=== PATIENT | female | born 1990 | race Caucasian/White ===

== ENCOUNTER 2018-04-04 17:35 | Inpatient (IN) | payer OTHER ==
--- NOTE | 2018-04-04 17:48 | ED Physician Documentation ---
Seizure - HISTORIAN Historian: patient - HPI Stated Complaint: seizures - post alcohol withdrawl Chief Complaint: Seizure Timing/Onset/Duration: multiple episodes (2) Last known Well Date: 04/02/18 Last Known Well Time: 07:00 Last known Well Code/Unknown Code: Unknown Witnessed By: other (worker at [facility] ) Preceding Symptoms: other (withdrawl from alcohol ) Character of Seizure(s): unresponsiveness, "shaking all over". denies: lost consciousness, shaking in one area, staring, incontinence of urine, incontinence of stool, stopped breathing, lost pulse Postictal Symptoms: confusion. denies: lost power of arms, lost power of legs, lost feeling of arms, lost feeling of legs, speech difficulty, visual disturbance, headache Location of Injury: other (right foot ) Further Comments: yes (She was doing her intake at [facility] around 1400 when she had her first seizure at 1405 lasting 1 min (she was given 200 mg of Tegretol) and then at 1704 she had another 1 and half min seizure. She told the facility she had her last drink two days ago but EMT was told she drank this am. She is feeling some drowsiness. She denies any pain other than her toes that she scraped in the first seizure.) - ROS NEURO/PSYCH: denies: headache, fainting, dizziness, anxiety, depression EYES/ENT: none CVS/RESP: none GI/: denies: nausea, vomiting, diarrhea MS/SKIN/LYMPH: none - PAST HX Previous seizure/seizure disorder: none Etiology: ethanol abuse Other History: none Surgeries/Procedures: none Immunizations: UTD Allergies/Adverse Reactions: Allergies Allergy/AdvReac Type Severity Reaction Status Date / Time amoxicillin Allergy Verified 04/04/18 17:44 Penicillins Allergy Verified 04/04/18 17:44 Home Medications: Ambulatory Orders Medication Instructions Recorded Labetalol HCl 1 tab PO BID 04/04/18 - SOCIAL HX Smoking History: non-smoker Alcohol Use: heavy Drug Use: none - FAMILY HX Family History: none - VITAL SIGNS Vital Signs: Vital Signs Temp Pulse Resp BP Pulse Ox 97.2 F L 81 17 159/102 98 04/04/18 20:45 04/04/18 20:45 04/04/18 20:45 04/04/18 20:45 04/04/18 20:45 - REVIEWED ASSESSMENTS Nursing Assessment Reviewed: Yes Vitals Reviewed: Yes Progress - Progress Progress: 1900: plan discussed and she is agreeable. will admit DG ED Results Lab/Radiology - Lab Results Lab Results: Lab Results 04/04/18 04/04/18 04/04/18 18:45 17:45 17:45 WBC 2.40 K/ul L K/ul (4.00-12.00) RBC 3.52 M/ul L M/ul (3.90-5.20) Hgb 12.3 g/dL g/dL (12.0-16.0) Hct 35.5 % % (34.5-46.5) MCV 100.9 fl H fl (80.0-100.0) MCH 34.9 pg H pg (28.0-34.0) MCHC 34.6 g/dL g/dL (30.0-36.0) RDW 15.3 % H % (11.3-14.3) Plt Count 107 K/mm3 L K/mm3 (130-400) Neut % (Auto) 66.0 % % (39.0-79.0) Lymph % (Auto) 23.7 % % (16.0-50.0) [place] % (Auto) 6.6 % % (0.0-11.0) Eos % (Auto) 0.9 % % (0.0-6.8) Baso % (Auto) 0.4 (0.0-1.5) Neut # (Auto) 1.6 # k/uL # k/uL (1.4-7.7) Lymph # (Auto) 0.6 # k/uL # k/uL (0.6-4.0) [place] # (Auto) 0.2 # k/uL # k/uL (0.0-0.9) Eos # (Auto) 0.0 # k/uL # k/uL (0.0-0.6) Baso # (Auto) 0.0 # k/uL # k/uL (0.0-0.5) Reactive Lymphs % 2.4 % % (0.0-5.0) Reactive Lymphs # 0.1 # k/uL # k/uL (0.0-0.8) Sodium 138 mmol/L mmol/L (136-145) Potassium 3.3 mmol/L L mmol/L (3.5-5.1) Chloride 97 mmol/L L mmol/L (98-107) Carbon Dioxide 18 mmol/L L mmol/L (22-30) BUN 4 mg/dL L mg/dL (7-17) Creatinine 0.50 mg/dL L mg/dL (0.52-1.04) Est GFR ( Amer) > 60 (60 - ) Est GFR (Non-Af Amer) > 60 (60 - ) Glucose 120 mg/dL H mg/dL (74-106) Calcium 9.3 mg/dL mg/dL (8.4-10.2) Total Bilirubin 1.5 mg/dL H mg/dL (0.2-1.3) AST 637 U/L H U/L (15-46) ALT 403 U/L H U/L (13-69) Alkaline Phosphatase 112 U/L U/L (38-126) Total Protein 8.2 g/dL g/dL (6.3-8.2) Albumin 5.0 g/dL g/dL (3.5-5.0) Ethyl Alcohol 8.4 mg/dL mg/dL (0.0-10.0) - Radiology Radiology Impressions: CT brain without IV contrast Clinical history: Seizures No evidence of intracranial bleed, acute infarct, midline shift or hydro cephalus. Mastoid air cells and visible sinus are clear. No visible tumor mass. Impression: Normal CT brain without IV contrast Electronically signed on Apr 04, 2018 6:41:16 PM CDT by: Jc Hall - Orders Orders: ED Orders Category Date Time Status IV Started NOW Care 04/04/18 17:[address] BRAIN W/O CONTRAST Stat Exams 04/04/18 Completed ALCOHOL MEDICAL USE ONLY Stat Lab 04/04/18 18:45 Completed CBC/PLATELET/DIFF Stat Lab 04/04/18 17:45 Completed CMP Stat Lab 04/04/18 17:45 Completed UA W/MICRO IF INDICATED Routine Lab 04/04/18 17:49 Ordered UDS [DRUG SCREEN URINE MEDICAL ONLY] Routine Lab 04/04/18 Ordered URINE HCG Stat Lab 04/04/18 18:57 Ordered 0.9 % Sodium Chloride [Normal Saline] 1,000 ml Med 04/04/18 18:51 Discontinued IV Q1H Seizure Physical Exam - Physical Exam General Appearance: no acute distress, lethargic Altered Mental Status Higher Functions: alert, oriented x3, no evidence of acute CVA, mood/affect nml EENT: nml eye inspection, PERRL Neck/Back: normal inspection Respiratory: no resp. distress, breath sounds nml, no evidence of rib injury CVS: reg rate & rhythm, heart sounds normal, equal pulses, no murmur Abdomen: non-tender, no organomegaly, nml bowel sounds, no distention Skin: warm/dry, normal color, other (abrasions on 2, 3 and 4th toe right foot ) Extremities: normal range of motion, no calf tenderness, other (tender to touch ) Observed Seizure Activity in ED: generalized Discharge Clincal Impression: Seizure, Alcohol abuse UTI (urinary tract infection) Qualifiers: Urinary tract infection type: site unspecified Hematuria presence: without hematuria Qualified Code(s): N39.0 - Urinary tract infection, site not specified Condition: Fair Disposition: 09 ADMITTED INPATIENT Decision to Admit: [id number] Date of Decison to Admit: 04/04/18 Decision Time: 19:15
[2018-04-04 18:06] LABS: BASOPHILS % 0.4 (0.0-1.5); EOSINOPHILS % 0.9 % (0.0-6.8); MEAN CORPUSCULAR HEMOGLOBIN 34.9 pg (28.0-34.0); MEAN CORPUSCULAR VOLUME 100.9 fl (80.0-100.0); MONOCYTES % 6.6 % (0.0-11.0); NEUTROPHILS # 1.6 # k/uL (1.4-7.7)
[2018-04-04 18:40] LABS: eGFR (African) > 60; eGFR (Non-African) > 60
[2018-04-04] MEDS ORDERED: 0.9 % SODIUM CHLORIDE 1,000 ML IV ONE (18:51)
--- NOTE | 2018-04-04 19:13 | Diagnostic Imaging Report ---
CARLO PAYNE [facility] [id number] [facility] [address] [place], [place]. [address] Report Submission Date: Apr 04, 2018 6:41:16 PM CDT Patient Study Name: AMANDEEP BEAUCHAMP Date: Apr 04, 2018 6:25:31 PM CDT Modality Type: CT Gender: F Description: CT BRAIN W/O CONTRAST : 90 Institution: [facility] Physician: CARLO PAYNE CT brain without IV contrast Clinical history: Seizures No evidence of intracranial bleed, acute infarct, midline shift or hydrocephalus. Mastoid air cells and visible sinus are clear. No visible tumor mass. Impression: Normal CT brain without IV contrast Electronically signed on Apr 04, 2018 6:41:16 PM CDT by: Jc LARA
[2018-04-04] MEDS ORDERED: HYDROXYZINE HCL 25 MG TABLET PO PRN (20:15)
[2018-04-04] MEDS ORDERED: 0.9 % SODIUM CHLORIDE 1,000 ML IV SCH (20:30)
[2018-04-04] MEDS ORDERED: LORazepam 2 MG/ML VIAL IM PRN (20:54)
[2018-04-04] MEDS ORDERED: cefTRIAXone SODIUM 1 GM VIAL ONE (21:25)
--- NOTE | 2018-04-04 21:34 | History and Physical Report ---
History of Present Illnes - History of Present Illness Reason for Visit: Alcohol withdrawal seizures History of Present Illness: 27-year-old white female who is been admitted at the [facility] for alcohol dependency. During her admission process patient developed a seizure that lasted approximately 60 to 90 seconds. It was described as being generalized tonic clonic in nature. Approximately three hours later patient had a another seizure that lasted approximately 60 seconds. Patient was subsequently brought to the emergency room for evaluation. Patient states that she started drinking approximately two months ago. Patient drink of choice is vodka. Patient had been drinking approximately 750 ML's per day. There is some confusion about when her last alcoholic intake has been. Patient has stated to staff that it was yesterday and/or two days ago. Patient is not had any previous drug rehab treatment. Patient denies that she said any previous alcohol withdrawal problems but this is the first time that she has withdrawn from alcohol. Patient denies any previous history of seizures. There is no family history of seizures. Patient feels a little petite get this time but otherwise states she feels normal. Patient was admitted to the hospital for further seizure control and alcohol withdrawal.. - Past Medical History Cardiac: HTN Hepatobiliary: denies: Cirrhosis, Hep A/B/C Psych: Anxiety, Addictions - Past Surgical History Past Surgical History: None - Past Family History Mother Family History: None (good health) Father Family History: CAD, (58yo) - Past Social History Smoke: <1 pack per day (08/21 ppd) Alcohol: Heavy Drugs: None Lives: With Family Domestic Violence: Negative - Health Maintenance Health Maintenance: denies: Pneumococcal Vaccine Influenza Vaccine: No Pneumonia Vaccine: No Resuscitation Status: Resusciation Status Resuscitation Status Full Code - Unable to Obtain History Unable to Obtain: Yes Review of Systems - Review of Systems Constitutional: negative: Fever, Chills, Sweats, Weakness Eyes: negative: pain, vision change ENT: negative: Ear Pain, Ear Discharge, Nose Discharge, Nose Congestion, Mouth Pain, Mouth Swelling Respiratory: negative: Cough, Dry, Shortness of Breath, Hemoptysis, SOB with Excertion, Sputum, Wheezing Cardiovascular: negative: Chest Pain, Palpitations, Orthopnea, Paroxysmal Noc. Dyspnea, Edema, Light Headedness Gastrointestinal: negative: Nausea, Vomiting, Abdominal Pain, Diarrhea, Constipation, Melena, Hematochezia Genitourinary: negative: Dysuria, Frequency, Incontinence, Hematuria Musculoskeletal: negative: Neck Pain, Shoulder Pain, Back Pain Skin: negative: Rash Neurological: Seizures. negative: Weakness, Numbness, Incoordination, Change in Speech, Confusion - Medications/Allergies Allergies/Adverse Reactions: Allergies Allergy/AdvReac Type Severity Reaction Status Date / Time amoxicillin Allergy Verified 04/04/18 17:44 Penicillins Allergy Verified 04/04/18 17:44 Home Medications: Home Medications Labetalol HCl 1 tab PO BID 04/04/18 Current Inpatient Medications: Current Inpatient Medications Carbamazepine (Tegretol) 200 mg PO QID DANA Hydroxyzine HCl (Atarax) 25 mg PO QID PRN PRN Reason: itching Sodium Chloride (Normal Saline) 1,000 mls @ 100 mls/hr IV Q10H DANA Ceftriaxone Sodium 1 gm/ (Sodium Chloride) 50 mls @ 100 mls/hr IV Q24H DANA Lorazepam (Ativan) 2 mg IM Q2 PRN PRN Reason: Alcohol Withdrawal Multivitamins (Tab-A-Ada) 1 each PO DAILY DANA Thiamine HCl (Vitamin B-1) 100 mg PO D DANA Exam - Exam Vital Signs: Vital Signs (72 hours) 04/04/18 04/04/18 17:35 20:45 Temperature 97.2 F L 97.2 F L Pulse Rate [ 81 81 Left Pulse ox] Respiratory 17 17 Rate Blood Pressure 159/102 159/102 [Right Arm] O2 Sat by Pulse 98 98 Oximetry General: Alert, Oriented to Person, Oriented to Place, Oriented to Time, Cooperative, Discheveled HEENT: Atraumatic, PERRLA, EOMI, Mouth Mucous membr. moist/Paia, Dentition Normal, Hearing Grossly Normal, Other (tongue normal) Neck: Normal Range of Motion. No: Stridor, Rigidity, Lymphadenopathy Carotids: WNL Thyroid: WNL Lungs: Clear to auscultation, Normal air movement, Speaks full Sentences. No: Wheezes, Rales, Rhonchi Cardiovascular: Regular rate, Normal S1, Normal S2, No murmurs Abdomen: Normal bowel sounds, Soft, No tenderness, No hepatospenomegaly, No masses Integumentary: Normal, Pa[place], Warm, Dry Extremities: No clubbing, No cyanosis, No edema Neurological: Normal gait, Normal speech, Strength Equal Bilat, Normal tone, Sen sation intact, Cranial nerves 3-12 NL, Reflexes 2+ Psych/Mental Status: Mental status NL, Mood NL, Appropriate Affect, Intact Judgment - Laboratory Results Laboratory Results: Laboratory Results 04/04/18 04/04/18 04/04/18 17:45 17:45 18:45 WBC 2.40 L RBC 3.52 L Hgb 12.3 Hct 35.5 MCV 100.9 H MCH 34.9 H MCHC 34.6 RDW 15.3 H Plt Count 107 L Neut % (Auto) 66.0 Lymph % (Auto) 23.7 [place] % (Auto) 6.6 Eos % (Auto) 0.9 Baso % (Auto) 0.4 Neut # (Auto) 1.6 Lymph # (Auto) 0.6 [place] # (Auto) 0.2 Eos # (Auto) 0.0 Baso # (Auto) 0.0 Reactive Lymphs % 2.4 Reactive Lymphs # 0.1 Sodium 138 Potassium 3.3 L Chloride 97 L Carbon Dioxide 18 L BUN 4 L Creatinine 0.50 L Est GFR ( Amer) > 60 Est GFR (Non-Af Amer) > 60 Glucose 120 H Calcium 9.3 Total Bilirubin 1.5 H AST 637 H ALT 403 H Alkaline Phosphatase 112 Total Protein 8.2 Albumin 5.0 Ethyl Alcohol 8.4 Assessment/Plan - Assessment/Plan (1) Alcohol abuse Status: Chronic Current Visit: Yes Assessment: Appears to be stable at this itme (2) Seizure Status: Acute Current Visit: Yes Assessment: probably EtOH related (3) UTI (urinary tract infection) Status: Acute Current Visit: Yes Qualifiers: Urinary tract infection type: site unspecified Hematuria presence: without hematuria Qualified Code(s): N39.0 - Urinary tract infection, site not specified (4) Hypokalemia Status: Acute Current Visit: Yes (5) Leukopenia Status: Acute Current Visit: Yes Assessment: Will monitor, felt to be related to EtOHism. Has been started on MVI. (6) Thrombocytopenia Status: Acute Current Visit: Yes Assessment: Probably relate to EtOHism. Will monitor VTE Assessment - RISK FACTOR SCORE VTE RISK FACTOR SCORES: OTHER (none, patient ambulatory) - RISK VTE LOW RISK: SCORE OF 1 OR LESS (RISK PROXIMAL DVT 0.4%) NO PROPHYLAXIS NEEDED
[2018-04-04] MEDS: cefTRIAXone SODIUM 1 GM in 0.9 % SODIUM CHLORIDE 50 ML IV SCH (21:45)
[2018-04-04] MEDS: CARBAMAZEPINE 200 MG TABLET PO SCH (21:45)
[2018-04-04] MEDS ORDERED: LORazepam 2 MG/ML VIAL IM SCH (22:00)
[2018-04-04 23:36] VITALS: BMI 22.4
[2018-04-05 05:01] LABS: BASOPHILS % 0.5 (0.0-1.5); EOSINOPHILS % 3.5 % (0.0-6.8); MEAN CORPUSCULAR HEMOGLOBIN 34.4 pg (28.0-34.0); MEAN CORPUSCULAR VOLUME 97.7 fl (80.0-100.0); MONOCYTES % 8.1 % (0.0-11.0); NEUTROPHILS # 1.5 # k/uL (1.4-7.7)
[2018-04-05 05:13] LABS: eGFR (African) > 60; eGFR (Non-African) > 60
[2018-04-05 06:25] LABS: APPEARANCE,URINE CLEAR (CLEAR); COLOR,URINE ORANGE (YELLOW); OCCULT BLOOD,URINE 2+ (NEGATIVE)
[2018-04-05 06:26] LABS: CANNABINOIDS NEGATIVE ng/mL (< 50); METHYLENEDIOXYMETHAMPHETAMINE NEGATIVE ng/mL (<500)
[2018-04-05] MEDS: CARBAMAZEPINE 200 MG TABLET PO SCH ×4 (11:07→20:23)
[2018-04-05] MEDS: THIAMINE HCL 100 MG TABLET PO SCH (11:08)
[2018-04-05] MEDS: MULTIVITAMIN 1 EACH TABLET PO SCH (11:08)
[2018-04-05] MEDS: POTASSIUM CHLORIDE 20 MEQ TABLET.ER PO SCH ×2 (11:09→20:23)
[2018-04-05] MEDS ORDERED: cefTRIAXone SODIUM 1 GM VIAL ONE (18:43)
[2018-04-05] MEDS: cefTRIAXone SODIUM 1 GM in 0.9 % SODIUM CHLORIDE 50 ML IV SCH (20:22)
--- NOTE | 2018-04-06 07:14 | Inpatient Progress Note ---
Subjective - Required Recertification Statement I anticipate X number of days because-include discharge plan: 1 day - Review of Systems Events since last encounter: Patient is not had any further seizures since admission. Patient still does feels slightly tremulous. Patient is taking oral intake better. Pulmonary: Denies: Dyspnea, Cough Cardiovascular: Denies: Chest Pain, Palpitations Gastrointestinal: Denies: Nausea, Vomiting, Abdominal Pain, Diarrhea, Constipation Genitourinary: Denies: Dysuria Objective - Exam Vitals and I&O: Vital Signs Temp 97.7 F 04/06/18 06:00 Pulse 71 04/06/18 06:16 Resp 18 04/06/18 06:16 BP 131/86 04/06/18 06:00 Pulse Ox 99 04/06/18 06:00 Intake & Output 04/05/18 04/05/18 04/06/18 11:59 23:59 11:59 Intake Total 2820 600 220 Balance 2820 600 220 Intake: IV 2520 0 100 Right Antecubital 2520 0 100 Oral 300 600 120 Other: Voiding Method Toilet Toilet Toilet # Voids 4 1 # Bowel Movements 1 General: Alert, Oriented to Person, Oriented to Place, Oriented to Time, Cooperative Neck: Supple, No JVD, No thyromegaly Lungs: Clear to auscultation, Normal air movement, Speaks full Sentences Cardiovascular: Regular rate, Normal S1, Normal S2, No murmurs Abdomen: Normal bowel sounds, Soft, No tenderness, No hepatospenomegaly, No masses Skin: Normal, [place], Warm, Dry Neurological: Normal gait, Normal speech, Strength Equal Bilat, Normal tone, Sensation intact, Cranial nerves 3-12 NL, Reflexes 2+ Psych/Mental Status: Mental status NL, Mood NL, Appropriate Affect, Intact Judgment - Results Results: Laboratory Results WBC 2.50 K/ul (4.00-12.00) L 04/05/18 04:54 RBC 3.45 M/ul (3.90-5.20) L 04/05/18 04:54 Hgb 11.9 g/dL (12.0-16.0) L 04/05/18 04:54 Hct 33.7 % (34.5-46.5) L 04/05/18 04:54 MCV 97.7 fl (80.0-100.0) 04/05/18 04:54 MCH 34.4 pg (28.0-34.0) H 04/05/18 04:54 MCHC 35.2 g/dL (30.0-36.0) 04/05/18 04:54 RDW 15.6 % (11.3-14.3) H 04/05/18 04:54 Plt Count 98 K/mm3 (130-400) L 04/05/18 04:54 Neut % (Auto) 59.1 % (39.0-79.0) 04/05/18 04:54 Lymph % (Auto) 25.9 % (16.0-50.0) 04/05/18 04:54 [place] % (Auto) 8.1 % (0.0-11.0) 04/05/18 04:54 Eos % (Auto) 3.5 % (0.0-6.8) 04/05/18 04:54 Baso % (Auto) 0.5 (0.0-1.5) 04/05/18 04:54 Neut # (Auto) 1.5 # k/uL (1.4-7.7) 04/05/18 04:54 Lymph # (Auto) 0.6 # k/uL (0.6-4.0) 04/05/18 04:54 [place] # (Auto) 0.2 # k/uL (0.0-0.9) 04/05/18 04:54 Eos # (Auto) 0.1 # k/uL (0.0-0.6) 04/05/18 04:54 Baso # (Auto) 0.0 # k/uL (0.0-0.5) 04/05/18 04:54 Reactive Lymphs % 2.9 % (0.0-5.0) 04/05/18 04:54 Reactive Lymphs # 0.1 # k/uL (0.0-0.8) 04/05/18 04:54 Sodium 140 mmol/L (136-145) 04/05/18 04:54 Potassium 3.3 mmol/L (3.5-5.1) L 04/05/18 04:54 Chloride 102 mmol/L (98-107) 04/05/18 04:54 Carbon Dioxide 25 mmol/L (22-30) 04/05/18 04:54 BUN 5 mg/dL (7-17) L 04/05/18 04:54 Creatinine 0.50 mg/dL (0.52-1.04) L 04/05/18 04:54 Estimated Creat Clear 192 04/05/18 04:54 Est GFR ( Amer) > 60 (60-) 04/05/18 04:54 Est GFR (Non-Af Amer) > 60 (60-) 04/05/18 04:54 Glucose 77 mg/dL (74-106) 04/05/18 04:54 Calcium 8.6 mg/dL (8.4-10.2) 04/05/18 04:54 Total Bilirubin 1.1 mg/dL (0.2-1.3) 04/05/18 04:54 AST 391 U/L (15-46) H 04/05/18 04:54 ALT 308 U/L (13-69) H 04/05/18 04:54 Alkaline Phosphatase 91 U/L (38-126) 04/05/18 04:54 Total Protein 6.8 g/dL (6.3-8.2) 04/05/18 04:54 Albumin 3.9 g/dL (3.5-5.0) 04/05/18 04:54 Urine Color [place] (YELLOW) 04/04/18 18:00 Urine Appearance Clear (CLEAR) 04/04/18 18:00 Urine pH 6.0 (5.0 - 8.0) 04/04/18 18:00 Ur Specific [place] >=1.030 (1.010-1.030) H 04/04/18 18:00 Urine Protein 3+ mg/dL (NEGATIVE) H 04/04/18 18:00 Urine Ketones 2+ mg/dL (NEGATIVE) H 04/04/18 18:00 Urine Occult Blood 2+ (NEGATIVE) H 04/04/18 18:00 Urine Nitrite Positive (NEGATIVE) H 04/04/18 18:00 Urine Bilirubin 2+ (NEGATIVE) H 04/04/18 18:00 Urine Urobilinogen 1.0 Eu (0.2-1.0) 04/04/18 18:00 Ur Leukocyte Esterase Negative (NEGATIVE) 04/04/18 18:00 Urine Glucose Negative mg/dL (NEGATIVE) 04/04/18 18:00 Urine HCG, Qual Negative (NEGATIVE) 04/04/18 18:00 Opiates Screen Negative ng/mL (<300) 04/04/18 18:00 Oxycodone Screen Negative ng/mL (<100) 04/04/18 18:00 Methadone Screen Negative ng/mL (<200) 04/04/18 18:00 Ur Barbiturates Screen Negative ng.mL (<200) 04/04/18 18:00 Tricyclic Antidepress Negative ng/mL (<300) 04/04/18 18:00 Phencyclidine Screen Negative ng/mL (< 25) 04/04/18 18:00 Amphetamines Screen Negative ng/mL (<500) 04/04/18 18:00 U Methamphetamines Scrn Negative ng/mL (<500) 04/04/18 18:00 MDMA Negative ng/mL (<500) 04/04/18 18:00 Benzodiazepines Screen Non negative ng/mL (<150) H 04/04/18 18:00 Urine Cocaine Screen Negative ng/mL (<150) 04/04/18 18:00 U Cannabinoids Screen Negative ng/mL (< 50) 04/04/18 18:00 Ethyl Alcohol < 10.0 mg/dL (0.0-10.0) 04/04/18 18:45 Assessment/Plan - Assessment/Plan (1) Seizure Status: Acute Current Visit: Yes Assessment: Patient was advised that I felt her seizure probably related to alcohol withdrawal. Would like to have the patient seizure free for 24 hours prior to discharge. (2) Alcohol abuse Status: Chronic Current Visit: Yes Assessment: stable (3) UTI (urinary tract infection) Status: Acute Current Visit: Yes Qualifiers: Urinary tract infection type: site unspecified Hematuria presence: without hematuria Qualified Code(s): N39.0 - Urinary tract infection, site not specified Assessment: under treatment
--- NOTE | 2018-04-06 07:22 | Discharge Summary ---
Discharge Summary - Discharge Sumary History of Present Illness: 27-year-old white female who is been admitted at the [facility] for alcohol dependency. During her admission process patient developed a seizure that lasted approximately 60 to 90 seconds. It was described as being generalized tonic clonic in nature. Approximately three hours later patient had a another seizure that lasted approximately 60 seconds. Patient was subsequently brought to the emergency room for evaluation. Patient states that she started drinking approximately two months ago. Patient drink of choice is vodka. Patient had been drinking approximately 750 ML's per day. There is some confusion about when her last alcoholic intake has been. Patient has stated to staff that it was yesterday and/or two days ago. Patient is not had any previous drug rehab treatment. Patient denies that she said any previous alcohol withdrawal problems but this is the first time that she has withdrawn from alcohol. Patient denies any previous history of seizures. There is no family history of seizures. Patient feels a little petite get this time but otherwise states she feels normal. Patient was admitted to the hospital for further seizure control and alcohol withdrawal.. Condition at Discharge: Stable Home Medications: Ambulatory Orders Medication Instructions Recorded Labetalol HCl 1 tab PO BID 04/04/18 Hydroxyzine HCl [Atarax] 25 mg PO QID PRN tablet 04/06/18 Multivitamin [Tab-A-Ada] 1 each PO DAILY tablet 04/06/18 Potassium Chloride [Klor-Con M20] 20 meq PO TID #60 tablet.er 04/06/18 Sulfamethoxazole/Trimethoprim 1 each PO BID #10 tablet 04/06/18 [Bactrim Ds] Thiamine HCl [Vitamin B-1] 100 mg PO D tablet 04/06/18 Consultations this Visit: None Procedures this Visit: None Allergies/Adverse Reactions: Allergies Allergy/AdvReac Type Severity Reaction Status Date / Time amoxicillin Allergy Verified 04/04/18 17:44 Penicillins Allergy Verified 04/04/18 17:44 Patient Problems: Current Active Problems Problem Status Onset Leukopenia Acute Seizure Acute Thrombocytopenia Acute UTI (urinary tract infection) Acute Alcohol abuse Chronic Discharge Summary: Patient was given a banana bag in the emergency room. Patient with maintain on IV fluids for the first 24 hours after admission. Patient was started on environment and vitamin supplement. Patient was started on withdrawal protocol. Patient vital signs remain stable during the hospitalization. Patient did not have any further seizures. On admission patient was felt to have a urinary tract infection was started on Rocephin 1 g IV. Patient did have a leukocytosis and thrombocytopenia on admission. Platelets have imroved to 121,000. WBC remains low at 210. Patient had some hypokalemia on admission. She had been taking some supplemental K at home OTC. Patient was started on KCL 20 meq BID and increased to TID at discharge. Last K was 2.1. Baseline K level is not known. Patient was subsequently transferred to [facility] in stable condition. - Final Diagnosis (1) Seizure Problems: Alcohol withdrawal related (2) Alcohol abuse Problems: In treatment (3) UTI (urinary tract infection) Problems: Started on antibiotic therapy. Culture pending
[2018-04-06 07:49] LABS: BASOPHILS % 0.7 (0.0-1.5); MEAN CORPUSCULAR HEMOGLOBIN 34.5 pg (28.0-34.0); MEAN CORPUSCULAR VOLUME 99.8 fl (80.0-100.0); MONOCYTES % 10.7 % (0.0-11.0); NEUTROPHILS # 1.1 # k/uL (1.4-7.7)
[2018-04-06 08:12] LABS: eGFR (African) > 60; eGFR (Non-African) > 60
[2018-04-06] MEDS: CARBAMAZEPINE 200 MG TABLET PO SCH (08:23)
[2018-04-06] MEDS: THIAMINE HCL 100 MG TABLET PO SCH (08:23)
[2018-04-06] MEDS: POTASSIUM CHLORIDE 20 MEQ TABLET.ER PO SCH (08:23)
[2018-04-06] MEDS: MULTIVITAMIN 1 EACH TABLET PO SCH (08:24)
[2018-04-06 09:32] VITALS: BP 143/94
== END 2018-04-06 09:15 | disposition home or self-care (01) | DRG 101 ==
LOC: EDBD 17:35 → ED 17:35 → SOUTH 19:33
PROVIDERS: ADMIT Family Medicine; ATTEND Family Medicine
DX: G40.89 Other seizures (principal); F10.239 Alcohol dependence with withdrawal, unspecified; N39.0 Urinary tract infection, site not specified; E87.6 Hypokalemia; D72.819 Decreased white blood cell count, unspecified; D69.6 Thrombocytopenia, unspecified
CPT/HCPCS: 70450; 80053; 80320; 80377; 81002; 81025; 85025; 87086; A9270; J0696; J7030; 96365; 99222; 99232; 99238; G0480; G0481; S1016